=== PATIENT | male | born 1975 | race Caucasian/White ===

== ENCOUNTER 2023-06-12 22:20 | Emergency (ER) | payer OTHER ==
[~2023-06-12] VITALS: Ht 172.7 cm; Wt 81.6 kg
[2023-06-12 22:20] VITALS: BP 143/89; TEMP 98.1; O2SAT 100
== END 2023-06-12 23:15 | disposition left against medical advice (07) ==
LOC: ER 22:25
DX: M25.521 Pain in right elbow (principal); Z53.21 Procedure and treatment not carried out due to patient leaving prior to being seen by health care provider
CPT/HCPCS: 85025-TC